=== PATIENT | female | born 2000 | race Caucasian/White ===

== ENCOUNTER 2019-09-11 21:17 | Emergency (ER) | payer OTHER ==
[2019-09-11 21:27] VITALS: BP 119/75; PULSE 67; TEMP 98.3; BMI 18.8
--- NOTE | 2019-09-12 01:17 | PDOC ---
Documentation entered by Sis Hinton SCRIBE, acting as scribe for Marina Mendoza MD. Marina Mendoza MD: This documentation has been prepared by the Jamaal mari Mackenzie, SCRIBE, under my direction and personally reviewed by me in its entirety. I confirm that the documentation accurately reflects all work , treatment, procedures, and medical decision making performed by me. History of Present Illness - General Chief Complaint: Pain, Acute Stated Complaint: SKIING, HIT HEAD,LOC Time Seen by Provider: 09/11/19 21:20 - History of Present Illness Initial Comments: This otherwise healthy 19-year-old girl presents, in the company of her mother, with a history of skiing into a tree while downhill skiing earlier today. Patient states that she had a "short" loss of consciousness, briefly losing consciousness but becoming alert quickly. She is able to ski down the rest of the mountain. She does however relate that she cannot remember much around the time before hitting the tree and that the whole time around the injury feels like "a dream". Since the head injury, approximately 6 hours prior to presentation, patient has had a generalized headache. She was lightheaded soon after the injury but this resolved quickly. She denies nausea/vomiting/ excessive sleepiness. She has had no problems with walking or speaking. She denies neck pain or any other complaints. She took a dose of acetaminophen at home for headache with minimal relief On no daily medications No known allergies Past History - Past Medical History Allergies/Adverse Reactions: Allergies Allergy/AdvReac Type Severity Reaction Status Date / Time No Known Allergies Allergy Verified 09/11/19 21:19 Home Medications: Ambulatory Orders No Home Medications 0 dose .ROUTE UTDICT 11/25/13 - Psycho Social/Smoking Cessation Hx Smoking History: Never smoked Hx Alcohol Use: No Substance Use Type: None Review of Systems - Review of Systems Able to Perform ROS?: Yes Comments:: 12 point review of systems is negative except for what is noted in the history of present illness *Physical Exam - Vital Signs Last Vital Signs Temp Pulse Resp BP Pulse Ox 98.3 F 67 15 119/75 99 09/11/19 21:23 09/11/19 21:23 09/11/19 21:23 09/11/19 21:23 09/11/19 21:23 - Physical Exam GENERAL: Young adult female, alert and oriented x3, no acute distress HEAD: Normal with no signs of trauma. EYES: PERRLA, EOMI, sclera anicteric, conjunctiva clear. ENT: Ears normal, nares patent, oropharynx clear without exudates. Moist mucous membranes. NECK: Normal range of motion, supple without lymphadenopathy, JVD, or masses. Nontender LUNGS: Breath sounds equal, clear to auscultation bilaterally. No wheezes, and no crackles. HEART:Regular rate and rhythm, normal S1 and S2 without murmur, rub or gallop. ABDOMEN:.normal bowel sounds No guarding,tenderness or rebound.No masses No distention. EXTREMITIES: Normal range of motion, no edema. No clubbing or cyanosis. No erythema, or tenderness. NEUROLOGICAL: Cranial nerves II through XII grossly intact. Normal speech. Normal gait. No focal neurological deficits. MUSCULOSKELETAL: Back mild tenderness to palpation bilateral periscapular areas , no midline spinal tenderness, no CVA tenderness SKIN: Warm, Dry, normal turgor, no rashes or lesions noted. ED Treatment Course - RADIOLOGY Radiology Studies Ordered: Category Date Time Status HEAD CT WITHOUT CONTRAST [CT] Stat CT Scan 09/11/19 21:47 Taken Medical Decision Making - Medical Decision Making This otherwise healthy 19-year old woman presents having struck a tree while downhill skiing earlier today. She had brief loss of consciousness at the scene followed by lightheadedness that resolved quickly. She has had a persistent generalized headache since the injury. No other associated symptoms. Exam is unremarkable. Because of her brief loss of consciousness and vague retrograde amnesia around the injury, noncontrast head CT performed. [id number] PGU negative Noncontrast head CT interpreted by Imaging vocational nurse: No evidence of acute intracranial hemorrhage or fracture. There is nasal septal deviation Results discussed with the patient and her mother. Although she has clear sensorium currently with normal neurologic exam, the mechanism of her injury and the mild retrograde amnesia described suggests that the patient may have a mild concussion. She should avoid physical and mental activity over the next 48 hours. She should use Tylenol as needed for her headache and return here to the emergency room if she has worsening of her headache or she develops nausea/ vomiting. Also, she has lethargy, difficulty speaking or gait abnormality she should return to the emergency room. She should have follow-up neuro exam by her PMD within the next 48 hours Discharge - Discharge Information Problems reviewed: Yes Clinical Impression/Diagnosis: Closed head injury Qualifiers: Encounter type: initial encounter Qualified Code(s): S09.90XA - Unspecified injury of head, initial encounter Condition: Stable Disposition: HOME - Follow up/Referral - Patient Discharge Instructions Patient Printed Discharge Instructions: DI for Closed Head Injury Additional Instructions: Elevate head on extra pillow at night for the next 2 days Tylenol for pain for the next 2 days; after that, can use Motrin/Aleve/Tylenol as needed Avoid strenuous physical or mental activity for the next 48 hours Return to ER immediately if you have severe headache/vomiting/lightheadedness/ lethargy Follow-up with your doctor within the next 48 hours - Post Discharge Activity
== END 2019-09-11 23:32 | disposition home or self-care (01) ==
LOC: FER 21:17
DX: S09.90XA Unspecified injury of head, initial encounter (principal); W22.8XXA Striking against or struck by other objects, initial encounter; Y93.23 Activity, snow (alpine) (downhill) skiing, snowboarding, sledding, tobogganing and snow tubing; Y92.89 Other specified places as the place of occurrence of the external cause
CPT/HCPCS: 70450-TC; 81025; 99281-25